=== PATIENT | female | born 1945 | race Caucasian/White ===

== ENCOUNTER → 2018-12-03 | Outpatient (CLI) | payer MEDICARE, BC, OTHER ==
[~2018-12-03] MED LIST: ISOVUE-370 76% 100ML VIAL (Q9967) As Ordered ONE
== END ==
LOC: M RAD 09:57
PROVIDERS: ATTEND Nurse Practitioner Women's Health
DX: N28.1 Cyst of kidney, acquired (principal)
CPT/HCPCS: 74178; Q9967

== ENCOUNTER → 2020-06-22 | Outpatient (CLI) | payer MEDICARE, OTHER, BC ==
[~2020-06-22] MED LIST changes: -ISOVUE-370 76% 100ML VIAL (Q9967) As Ordered ONE; +ISOVUE-370 76% 100ML VIAL As Ordered ONE
--- NOTE | 2020-06-22 15:43 | REP ---
INDICATION: COMPLEX RENAL CYST. COMPARISON: 12/03/2018 TECHNIQUE: Axial precontrast, contrast-enhanced and delayed images of the abdomen using 100 cc Isovue 370 intravenous contrast material along with coronal and sagittal reformations. This CT examination was performed using the following dose reduction techniques: Automated exposure control, adjustment of mA and/or kv according to the patient's size, and the use of iterative reconstruction technique. FINDINGS: Right kidney includes 4.2 cm simple benign appearing cyst. Left kidney demonstrates cortical irregularity and chronic age-related changes along with simple subcentimeter cyst. No evidence for perinephric stranding, hydroureteronephrosis, intrarenal or obstructing ureteral calculi. No renal mass lesion. Liver, spleen, pancreas, and bilateral adrenal glands are normal. Cholelithiasis noted without acute cholecystitis. Visualized portions of the enteric system are grossly unremarkable. 1 cm fat containing periumbilical hernia noted. No ascites. No adenopathy. No free air. Atherosclerotic changes to the aorta without aneurysm or dissection. IMPRESSION: 1. 4.2 cm benign right renal cyst similar to prior examination along with subcentimeter benign left renal cyst. 2. Cholelithiasis. <Electronically signed by Ronnie Solis > 06/22/20 [id number]
== END ==
LOC: M RAD 14:35
PROVIDERS: ATTEND Nurse Practitioner Women's Health
DX: Q61.00 Congenital renal cyst, unspecified (principal)
CPT/HCPCS: 74170; Q9967

== ENCOUNTER → 2020-07-03 | Outpatient (REF) | payer MEDICARE, OTHER, BC ==
[2020-07-04 11:29] LABS: APPEARANCE, URINE HAZY (CLEAR); BACTERIA, URINE AUTO 1+ (NEGATIVE); BILIRUBIN, URINE AUTO NEGATIVE (NEGATIVE); BLOOD, URINE BLOOD NEGATIVE (NEGATIVE); CALCIUM OXALATE CRYSTALS SMALL; COLOR, URINE AMBER (YELLOW); GLUCOSE, URINE (UA) AUTO NEGATIVE (NEGATIVE); KETONE, URINE AUTO TRACE mg/dL (NEGATIVE); LEUKOCYTE ESTERASE, URINE AUTO 2+ (NEGATIVE); MUCUS, URINE SMALL (NEGATIVE); NITRITE, URINE AUTO NEGATIVE (NEGATIVE); PROTEIN, URINE AUTO 1+ mg/dL (NEGATIVE); RBC, URINE AUTO 2 /HPF (0-3); SQUAMOUS EPITHELIAL CELL UR AU 2 /HPF (0-6); UROBILINOGEN, URINE AUTO 0.2 mg/dL (0.0-2.0); WBC, URINE AUTO 6 /HPF (0-3)
== END ==
LOC: M SMT 09:57
PROVIDERS: ATTEND Urology
DX: R35.1 Nocturia (principal); R82.89 Other abnormal findings on cytological and histological examination of urine